=== PATIENT | female | born 1965 | race Caucasian/White ===

== ENCOUNTER 2017-11-08 07:34 | Day surgery (SDC) | payer BC ==
[2017-11-06 11:26] VITALS: BMI 27.4
[2017-11-08] MEDS ORDERED: fentaNYL CITRATE 250 MCG/5 ML VIAL ONE (10:00)
[2017-11-08] MEDS ORDERED: PROPOFOL 20 ML ONE (10:00)
[2017-11-08] MEDS ORDERED: MIDAZOLAM HCL 2 MG/2 ML SINGLE DOSE VIAL ONE (10:01)
[2017-11-08] MEDS ORDERED: LIDOCAINE HCL/PF 2% SDV 5ML VIAL ONE (10:01)
[2017-11-08] MEDS ORDERED: LIDOCAINE HCL 2% JELLY (5 ML/TUBE) ONE (10:02)
[2017-11-08] MEDS ORDERED: ONDANSETRON 4 MG/2 ML VIAL ONE ×2 (10:02→11:53)
[2017-11-08] MEDS ORDERED: DEXAMETHASONE SOD PHOSPHATE 4 MG/1 ML VIAL ONE (10:02)
[2017-11-08] MEDS ORDERED: KETOROLAC TROMETHAMINE 30 MG/1 ML VIAL ONE (10:02)
[2017-11-08] MEDS ORDERED: ceFAZolin SODIUM 1 GM VIAL ONE (10:02)
[2017-11-08] MEDS ORDERED: ceFAZolin SODIUM 1 GM VIAL IVPB ONE (10:37)
[2017-11-08] MEDS ORDERED: methylPREDNISolone ACET (DEPO) 40 MG/1 ML VIAL NR ONE (11:21)
[2017-11-08] MEDS ORDERED: BUPIVACAINE HCL/PF 0.25% (2.5MG/ML) 10 ML VIAL IJ ONE (11:22)
--- NOTE | 2017-11-08 11:41 | OP ---
Operative Note - Note: Operative Date: 11/08/17 Pre-Operative Diagnosis: 1. Right knee medial meniscus tear. 2. Right knee DJD Operation: 1. SARK. 2. PMM. 3. Chondroplasty Findings: 1. Right knee partial medial meniscus tear 2. Unstable (grade 4) cartilage flap/chondromalacia medial femoral condyle 3. 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
[2017-11-08] MEDS ORDERED: ONDANSETRON 4 MG/2 ML VIAL IVPUSH ONE (11:52)
[2017-11-08 13:20] VITALS: PULSE 72; TEMP 98
[2017-11-08 13:23] VITALS: BP 122/60
[2017-11-08] MEDS ORDERED: ONDANSETRON 4 MG/2 ML VIAL IVPUSH PRN (14:55)
[2017-11-08] MEDS ORDERED: oxyCODONE HCL 5 MG TABLET PO PRN ×2 (14:55)
[2017-11-08] MEDS ORDERED: LACTATED RINGERS SOLUTION 1,000 ML IV SCH (15:00)
[2017-11-08] MEDS ORDERED: PARoxetine HCL 20 MG TABLET (FP) PO SCH (22:00)
[2017-11-09] MEDS ORDERED: amLODIPine BESYLATE 10 MG TABLET (FP) PO SCH (10:00)
--- NOTE | 2017-11-09 13:51 | OP ---
DATE OF OPERATION: 11/08/2017 SURGEON: Gallo Briceno MD PIPE SMOKER MACHINE OPERATOR: Danny Briceno MD PREOPERATIVE DIAGNOSIS: Right medial meniscal tear of knee with osteoarthritis. POSTOPERATIVE DIAGNOSIS: Tricompartmental osteoarthritis of right knee and medial meniscal tear. OPERATION PERFORMED: 1. Right knee arthroscopy. 2. Arthroscopic shaving chondroplasty of right medial femoral condyle. 3. Right partial posterior horn medial meniscectomy. ANESTHESIA: General. ANTIBIOTICS GIVEN: Kefzol 2 g. DESCRIPTION OF PROCEDURE: The patient was correctly identified and brought to the operating room. His right lower extremity was prepped free and draped in the routine manner, with Betadine scrub solution, wiped off with alcohol, and DuraPrep applied. A knee bolster was applied. A bloodless field was utilized. Via a standard anterolateral portal and anteromedial portal, the arthroscopic instrumentation was introduced into the knee. 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 The medial femoral condyle appeared to have significant degenerative Outerbridge level 3 and 4 changes on the entire medial femoral condyle, worse posteriorly, where a large flap tear was noted, giving a diagnosis of Outerbridge level 4 lesion. The lateral patellar facet revealed 3 Outerbridge changes, the trochlear groove level 2 changes. Thus, most of the chondral damage was on the lateral patella, the trochlea groove, as well as the medial femoral condyle. The lateral joint surface itself, the hyaline cartilage was normal. The only concern was the start of a rim osteophyte on the tibial side and femoral side. This was readily noted more on the femoral side, pointing towards tricompartmental disease. A shaving chondroplasty was performed using a Highcon shaver, clearing the flap tear off the medial femoral condyle and trimming out the peripheral edge and tear of the posterior horn which was flapping into the joint. A very conservative shaving of the meniscus was performed to enable its structural integrity to be maintained. The ACL ligament appeared normal. The lateral compartment was pristine in appearance except for the osteophyte, as noted. The popliteal hiatus revealed no loose bodies. The knee was thoroughly lavaged. The portals were closed with 3-0 nylon. The joint was instilled with Marcaine and steroid. The patient was extricated from the operating room with no complications. MD NEIL Hendricks/[id number]
--- NOTE | 2017-11-13 15:43 | PATH ---
Surgical Pathology Report Patient Name: GEOVANNA MAKI Med. Rec. #: [id number] /Age/Gender: 1965 (Age: 52) / F Account: [id number] Location: [facility] AMBULATORY Taken: 11/08/2017 Received: 11/08/2017 Reported: 11/13/2017 Physicians: Danny Briceno M.D. Specimen(s) Received RIGHT KNEE SHAVINGS Clinical History Medial meniscus tear Final Diagnosis KNEE, RIGHT, ARTHROSCOPIC SHAVINGS: FIBROSYNOVIAL TISSUE AND CARTILAGE. Electronically Signed Sue Suárez M.D. Gross Description Received in formalin, labeled "right knee shavings," is a 2.5 x 1.5 x 1.2 cm. aggregate of hwang-yellow soft tissue fragments. The formalin is filtered and the specimen is entirely submitted in one cassette. 11/12/201711/12/2017
== END 2017-11-08 13:00 | disposition home or self-care (01) ==
LOC: FASU 07:34
PROVIDERS: ATTEND Orthopaedic Surgery Adult Reconstructive Orthopaedic Surgery
PROC: 0SBC4ZZ Excision of Right Knee Joint, Percutaneous Endoscopic Approach (ICD-10-PCS; principal; 2017-11-08 09:00)
DX: M23.221 Derangement of posterior horn of medial meniscus due to old tear or injury, right knee (principal); M17.11 Unilateral primary osteoarthritis, right knee
CPT/HCPCS: 88304-TC; 94760

== ENCOUNTER 2018-02-26 07:25 | Inpatient (IN) | payer BC, OTHER ==
[2018-02-26 08:06] VITALS: BMI 27.2
[2018-02-26] MEDS ORDERED: MIDAZOLAM HCL 2 MG/2 ML SINGLE DOSE VIAL ONE ×4 (08:34→13:23)
[2018-02-26] MEDS ORDERED: ONDANSETRON 4 MG/2 ML VIAL ONE ×4 (08:43→15:53)
[2018-02-26] MEDS ORDERED: KETOROLAC TROMETHAMINE 30 MG/1 ML VIAL ONE ×2 (08:43→11:10)
[2018-02-26] MEDS ORDERED: DEXAMETHASONE SOD PHOSPHATE 4 MG/1 ML VIAL ONE ×2 (08:43→11:04)
[2018-02-26] MEDS ORDERED: VANCOMYCIN 1,000 MG in DEXTROSE 5%-WATER - 250 ML IVPB ONE ×2 (09:47→22:00)
[2018-02-26] MEDS ORDERED: TRANEXAMIC ACID 1000 MG/10 ML VIAL IVPUSH ONE (09:47)
[2018-02-26] MEDS ORDERED: CEFAZOLIN 2 GM in DEXTROSE 5%-WATER - 50 ML IVPB ONE (09:47)
[2018-02-26] MEDS ORDERED: ONDANSETRON 4 MG/2 ML VIAL IVPUSH PRN ×2 (09:53→15:12)
[2018-02-26] MEDS ORDERED: oxyCODONE HCL 5 MG TABLET PO PRN (09:53)
[2018-02-26] MEDS ORDERED: DEXAMETHASONE SOD PHOSPHATE/PF 10 MG/ML SDV ONE (09:57)
[2018-02-26] MEDS ORDERED: BUPIVACAINE LIPOSOME/PF (EXPAREL) 266 MG/20 ML VIAL ONE (09:57)
[2018-02-26] MEDS ORDERED: BUPIVACAINE HCL/PF (5 MG/ML) 30 ML VIAL IJ ONE (09:58)
[2018-02-26] MEDS ORDERED: LOSARTAN POTASSIUM 50 MG TABLET (FP) PO SCH (10:00)
[2018-02-26] MEDS ORDERED: LACTATED RINGERS SOLUTION 1,000 ML IV SCH ×2 (10:00→15:15)
[2018-02-26] MEDS ORDERED: PROPOFOL 20 ML ONE ×8 (10:42→14:38)
[2018-02-26] MEDS ORDERED: VANCOMYCIN 1,000 MG VIAL (RESTRICTED TO ID ONLY) ONE (10:43)
[2018-02-26] MEDS ORDERED: TRANEXAMIC ACID 1000 MG/10 ML VIAL ONE (10:43)
[2018-02-26] MEDS ORDERED: LIDOCAINE HCL/PF 2% SDV 5ML VIAL ONE (10:43)
[2018-02-26] MEDS ORDERED: ceFAZolin SODIUM 1 GM VIAL ONE ×2 (10:43→13:46)
[2018-02-26] MEDS ORDERED: ePHEDrine SULFATE 50 MG/1 ML AMPULE ONE ×2 (12:23→14:50)
[2018-02-26] MEDS ORDERED: SODIUM CHLORIDE 0.9% P/F 10 ML VIAL IJ ONE (13:46)
[2018-02-26] MEDS ORDERED: MAG HYDROX/AL HYDROX/SIMETH 30 ML UNIT-DOSE CUP PO PRN (15:12)
--- NOTE | 2018-02-26 15:12 | SURG ---
Surgery Salesperson Hearing Aids Note Salesperson Hearing Aids: Lefty Street PA-C Date of Service: 02/26/18 Diagnosis: Right knee osteoarthritis Procedure: VALERY right total knee replacement I was present for the entirety of the operative procedure. For further detail, please refer to operative report. Visit type - Case Type Case Type: Scheduled Admission - New patient This patient is new to me today: Yes Date on this admission: 02/26/18
[2018-02-26] MEDS ORDERED: BENZOIN/ALOE VERA/STORAX/TOLU 58 ML BOTTLE ONE (15:19)
--- NOTE | 2018-02-26 15:57 | OP ---
Operative Note - Note: Operative Date: 02/26/18 Pre-Operative Diagnosis: Right knee DJD Operation: Right total knee replacement Findings: Grade 4 chondromalacia medial femoral condyle, trochlear sulcus, & medial tibial plateau Implants: [employer]abjit Triathlon, all components cemented. Femur - 3. Tibia - 4. Poly - 9mm, PS. Patella - 27mm, symmetric Post-Operative Diagnosis: Same as Pre-op Surgeon: Danny Briceno Haulpak Driver: Lefty Street Anesthesiologist/THERAPIST RESPIRATORY: Yeyo Cook Anesthesia: Spinal (Adductor canal block) Specimens Removed: Bone, soft tissue Estimated Blood Loss (mls): 100 Fluid Volume Replaced (mls): 1,800 Operative Report Dictated: Yes
[2018-02-26] MEDS ORDERED: ACETAMINOPHEN INJECTION 100 ML IVPB ONE (16:01)
--- NOTE | 2018-02-26 16:01 | PN ---
Progress Note (short form) - Note Progress Note: 52F s/p RIGHT total knee replacement POD #0. -Pain control: per anaesthesia team. -DVT PPx: - Mechanical: ASA EC 81mg PO BID x 6 weeks. - Mechanical: PABLO's, SCD's. -Incentive spirometry. -PT/OT/Rehab, OOB. -WBAT RLE. -Lexi-op antibiotics: Ancef, Vancomycin. -f/u TOV. -f/u AM labs tomorrow. -Diet as tolerated. -Care per medical hospitalist team. -Discharge planning. -Will follow. Danny Briceno MD (Orthopaedic Surgery).
[2018-02-26] MEDS ORDERED: ACETAMINOPHEN 1000 MG/100 ML VIAL (NON FORMULARY) IVPB ONE (16:08)
[2018-02-26] MEDS: oxyCODONE HCL 10 MG SUSTAINED ACTING TABLET PO SCH ×2 (17:17→22:08)
[2018-02-26] MEDS: ACETAMINOPHEN 1000 MG/100 ML VIAL (NON FORMULARY) IVPB SCH (17:18)
[2018-02-26] MEDS: ACETAMINOPHEN 325 MG TABLET (FP) PO SCH (17:41)
[2018-02-26] MEDS: oxyCODONE HCL 5 MG TABLET PO PRN ×2 (17:58→22:48)
[2018-02-26] MEDS ORDERED: CEFAZOLIN 1 GM/D5W 1 GM/50 ML BAG IVPB SCH (18:00)
[2018-02-26] MEDS ORDERED: ASCORBIC ACID 500 MG TABLET (FP) PO SCH (22:00)
[2018-02-26] MEDS: SENNOSIDES/DOCUSATE COMBO (SENNA PLUS) TABLET (UD) PO SCH (22:07)
[2018-02-26] MEDS: PARoxetine HCL 20 MG TABLET (FP) PO SCH ×2 (22:07→22:13)
[2018-02-26] MEDS: CEFAZOLIN 1 GM/D5W 1 GM/50 ML BAG IVPB SCH (22:07)
[2018-02-26] MEDS: ASPIRIN COATED 81 MG TABLET.EC PO SCH (22:07)
[2018-02-27] MEDS: ACETAMINOPHEN 1000 MG/100 ML VIAL (NON FORMULARY) IVPB SCH ×2 (01:08→08:28)
[2018-02-27] MEDS: oxyCODONE HCL 5 MG TABLET PO PRN ×2 (03:07→06:26)
[2018-02-27] MEDS: CEFAZOLIN 1 GM/D5W 1 GM/50 ML BAG IVPB SCH (06:19)
[2018-02-27 09:51] LABS: ANION GAP 6 (8-16); BLOOD UREA NITROGEN 12 mg/dl (7-18); CALCIUM 8.9 mg/dl (8.4-10.2); CHLORIDE 100 mmol/L (98-107); CO2 26 mmol/L (22-28); GLUCOSE,RANDOM 178 mg/dl (74-106); POTASSIUM 4.2 mmol/L (3.5-5.1); SODIUM 132 mmol/L (136-145)
[2018-02-27] MEDS: ASPIRIN COATED 81 MG TABLET.EC PO SCH (09:51)
[2018-02-27] MEDS: oxyCODONE HCL 10 MG SUSTAINED ACTING TABLET PO SCH (09:52)
[2018-02-27] MEDS: SENNOSIDES/DOCUSATE COMBO (SENNA PLUS) TABLET (UD) PO SCH (09:52)
[2018-02-27] MEDS ORDERED: PANTOPRAZOLE 40 MG TABLET (FP) PO SCH (10:00)
[2018-02-27] MEDS ORDERED: amLODIPine BESYLATE 10 MG TABLET (FP) PO SCH (10:00)
[2018-02-27] MEDS ORDERED: LOSARTAN POTASSIUM 50 MG TABLET (FP) PO SCH (10:00)
[2018-02-27 10:15] LABS: HEMATOCRIT 35.5 % (32.4-45.2); HEMOGLOBIN 11.3 GM/dl (10.7-15.3); MCH 26.5 pg (25.7-33.7); MCHC 31.8 g/dl (32.0-36.0); MEAN CELL VOLUME 83.3 fl (80-96); PLATELET COUNT 301 K/MM3 (134-434); RBC 4.26 M/mm3 (3.60-5.2); RDW 12.6 % (11.6-15.6); WHITE BLOOD COUNT 15.6 K/mm3 (4.0-10.8)
[2018-02-27 10:32] LABS: CREATININE < 0.8 mg/dl (0.6-1.3)
--- NOTE | 2018-02-27 11:20 | OP ---
DATE OF OPERATION: 02/26/2018 SURGEON: Danny Briceno MD LASERIST: Lefty Street MD PREOPERATIVE DIAGNOSIS: Osteoarthritis, right knee. POSTOPERATIVE DIAGNOSIS: Osteoarthritis, right knee. SURGICAL PROCEDURE: Right MAKOplasty total knee replacement arthroplasty by a subvastus approach. ANESTHESIA: Spinal, sedation, adductor canal block. POSITION: Supine INCISION: Midline ESTIMATED BLOOD LOSS: 100 mL. INTRAVENOUS FLUID: Crystalloid, 1.8 L. SPECIMENS: None. DRAINS: None. COMPLICATIONS: None. URINE OUTPUT: None. BACTERIOLOGY: None. TRANSFUSIONS: None. CLOSURE: No. 1 and 2-0 Vicryl, 3-0 Biosyn absorbable sutures. TOURNIQUET PRESSURE: 300 mmHg. TOURNIQUET TIME: 180 minutes. INDICATIONS: The patient is a 52-year-old female who was indicated for a right total knee replacement in order to facility improved motion and mobilization and to prevent the complications associated with a sedentary lifestyle. The patient specifically requested a MAKOplasty robotic total knee replacement done by a muscle-sparing subvastus knee replacement. This all being feasible, I decided to perform this exact procedure. The patient was identified in the holding area by her armband. A long discussion was held with the patient in the presence of her regarding the risks, benefits, and alternatives of the above-named procedure. The risks include, but are not limited to: Pain, bleeding, infection, damage to surrounding structures (including nerves, blood vessels, skin, ligaments, tendons, and bone), wound complications, failure of hardware/implants/reduction, need for further surgery, blood clots, myocardial infarction, cerebrovascular injury, pulmonary embolism, anesthesia complications, compartment syndrome, limb loss, limp, loss of function, and . Benefits were as mentioned above. Alternatives include no surgery. All questions were answered. The patient and her partner understood and agreed to the procedure. Informed consent was obtained, witnessed, and verified. The patients correct operative limb - that is the right lower extremity - was marked. The patient was taken to the operating room after being seen by the anesthesia and nursing staff. DESCRIPTION OF PROCEDURE: The patient was brought into the operating room and transferred to the OR table, where she was secured with a safety strap. Consent and the operative site were again verified with the patient and nursing and anesthesia staff. Patient received a right lower extremity adductor canal nerve block in the preoperative holding area. Upon arrival into the operating room, she received 1 g of intravenous vancomycin as well as 2 g of intravenous Ancef. A time-out was then done led by , the attending surgeon. A preoperative orthopedic examination revealed a marked varus deformity of the right knee with an approximately 5-degree flexion contracture of the knee. The patient was positioned with all bony prominences well padded, and a tourniquet was placed proximally on the right thigh and set to 300 mmHg. The operative site was then prepped and draped in standard sterile fashion. A time-out was again done. The foot and lower leg were secured in a leg-camara, which was part of the sliding rail system that secured the lower leg throughout the procedure. A time-out was again done. The limb was then exsanguinated using an Esmarch. The tourniquet was inflated, and the case began. A midline longitudinal incision was made into the right knee followed by a subvastus exposure. The patella was everted and a free-hand cut of the posterior surface of the patella was made so as to facilitate patellar resurfacing. With the intention of placing the smallest possible symmetric button, a drill guide was utilized to ream 3 drill holes into the cut surface of the patella so as to facility resurfacing with a prosthetic implant. At this point in time, the femoral pins were drilled into the distal diaphysis of the femur almost in the coronal plane of the knee exiting medially. The femoral array was then assembled. Next, the tibial pins for the MAKOplasty array were inserted 4 fingerbreadths distal to the tibial tubercle over the anteromedial surface of the tibia. Two short longitudinal skin incisions were made to facilitate the approach to the surface of the tibia. The tibial array was then assembled. Checkpoint stubs were then inserted into the proximal tibial bone bed as well as the distal femoral bone bed adjacent to the exposed medial femoral condyle. Next, all checkpoints were obtained in accord with the MAKOplasty software and verified to be within acceptable parameters so as to perform the MAKOplasty procedure with planned accuracy. At this time, the infrapatellar fat pad was excised. A peripatellar neurectomy was performed using electrocautery. The ACL and PCL were then transected using electrocautery. Soft tissues were then retracted to provide full exposure of the knee using retractor system. The MAKOplasty robotic arm was used to perform all bone cuts of the distal femur as well as the proximal tibia. Trial components were then inserted, and due to tight flexion and extension gaps, the decision was made to cut 2 more millimeters off the proximal tibia. Trial components were then inserted, and excellent coronal, sagittal, and rotational balance was demonstrated with good fit of the implants. Outstanding range of motion was demonstrated with the knee being flexed from 0 to 130 degrees of knee flexion. Excellent varus/valgus stability was achieved in full extension as well as at 90 degrees of flexion with the trial components in place. At this point in time, 2 lug holes were drilled into the distal femoral bone bed via the trial implant so as to facilitate final implantation. Next, a box-cut jig was assembled and a chisel and oscillating saw were used to produce a box notch cut into the distal femur. The remaining stump of ACL and PCL were then excised using electrocautery. At this point in time, the proximal tibial bone bed was then prepped for final implantation. Due to the excessive sclerotic bone over the medial tibial plateau, numerous drill holes were made into the bone bed to allow excellent potential for interdigitation of the cement mantel so as to expose maximum fixation of the implant. Next the bone was copiously irrigated so as to displace all blood and fat from the interstices of the cancellous bone. This was on all bony surfaces. Cement was then impacted using high pressurized gun as well as finger impaction into the interstices of bone bed and all cut surfaces. The following implants were then cemented into place: [employer] Triathlon knee tibia size 4, femur size 3 (posterior stabilized), patella 27 mm symmetric, and 9-mm polyethylene insert (posterior stabilized). The knee was then placed in full extension so as to allow curing of the cement with the knee in full extension. Once the cement was satisfactorily hard, all excess cement was debrided using a 0.25-inch curved osteotome and mallet. It should be noted that the 9-mm polyethylene insert was a trial insert that had been placed. The knee was thoroughly irrigated once again after removal of the trial polyethylene insert. The tourniquet was then released at a final time of 180 minutes, and hemostasis was achieved using electrocautery. Next, an 11-mm polyethylene insert was implanted, and this was a PS insert. Next, the knee was taken through a full range of motion and alignment and stability in the coronal, sagittal, and rotation planes in full extension and full flexion were satisfactory. The leg was straightened, and passive range of motion was demonstrated from 0 to 130 degrees of knee flexion. Full varus and valgus stability was demonstrated in both full extension and at 90 degrees of flexion. This was with varus and valgus stress and with the use of a Schneider elevator in the medial and lateral joint spaces. Once again, the wounds were copiously irrigated. With hemostasis assured, the decision was made not to place the drain. The wounds were closed primarily using No. 1 and 2-0 Vicryl sutures, and the skin was eventually closed using 3-0 Biosyn in intracuticular running fashion. The checkpoint stubs and femoral as well as tibial pins all removed prior to closure and prior to the final round of irrigation. The tibial sites were closed using 3-0 Vicryl suture in buried fashion. Next, the skin surface was cleaned using water-soaked lap pads, and then, dried using dry lap pads. Benzoin and Steri-Strips as well as a JumpStart dressing were applied over the wounds, and Webril as well as Milan wraps were placed on the foot all the way up to the thigh with a compressive sterile dressing. The sponge and needle counts were correct at the end of the case, and I, the attending surgeon, was present and scrubbed throughout the case. The patient was then transferred to the hospital bed and then to the recovery room in stable condition having tolerated this procedure well. MD NEIL Alanis/[id number]
--- NOTE | 2018-02-27 12:55 | DS ---
Physical Exam: SUBJECTIVE: Patient seen and examined, ambulatory at bedside, with the assistance of a walker, patient denies any chest pain, shortness of breath, or paresthesia to the right lower extremity OBJECTIVE: patient is a 52 y/o female with a past medical history of hypertension and DJD. Patient was admitted to the medical surgical unit after an elective right kneee replacement, Dr Briceno. Vital Signs Temperature 98.1 F 02/27/18 06:00 Pulse Rate 83 02/27/18 06:00 Respiratory Rate 18 02/27/18 06:00 Blood Pressure 110/57 02/27/18 06:00 O2 Sat by Pulse Oximetry (%) 93 L 02/27/18 06:00 PHYSICAL EXAM GENERAL: The patient is awake, alert, and fully oriented, in no acute distress. HEAD: Normal with no signs of trauma. EYES: PERRL, extraocular movements intact, sclera anicteric, conjunctiva clear. ENT: Ears normal, nares patent, oropharynx clear without exudates, moist mucous membranes. NECK: Trachea midline, full range of motion, supple. LUNGS: Breath sounds equal, clear to auscultation bilaterally, no wheezes, no crackles, no accessory muscle use. HEART: Regular rate and rhythm, S1, S2 without murmur, rub or gallop. ABDOMEN: Soft, nontender, nondistended, normoactive bowel sounds, no guarding, no rebound, no hepatosplenomegaly, no masses. EXTREMITIES: 2+ pulses, warm, well-perfused, no edema. RIGHT LOWER EXTREMITY: dressing CDI, less than 3 second capillary. + 3 pedal pulse NEUROLOGICAL: Cranial nerves II through XII grossly intact. Normal speech, gait not observed. PSYCH: Normal mood, normal affect. SKIN: Warm, dry, normal turgor, no rashes or lesions noted. LABS CBC,CMP WBC 15.6 K/mm3 (4.0-10.8) H 02/27/18 09:10 RBC 4.26 M/mm3 (3.60-5.2) 02/27/18 09:10 Hgb 11.3 GM/dl (10.7-15.3) 02/27/18 09:10 Hct 35.5 % (32.4-45.2) 02/27/18 09:10 MCV 83.3 fl (80-96) 02/27/18 09:10 MCH 26.5 pg (25.7-33.7) 02/27/18 09:10 MCHC 31.8 g/dl (32.0-36.0) L 02/27/18 09:10 RDW 12.6 % (11.6-15.6) 02/27/18 09:10 Plt Count 301 K/MM3 (134-434) 02/27/18 09:10 MPV 8.0 fl (7.5-11.1) 02/27/18 09:10 Sodium 132 mmol/L (136-145) L 02/27/18 09:10 Potassium 4.2 mmol/L (3.5-5.1) 02/27/18 09:10 Chloride 100 mmol/L (98-107) 02/27/18 09:10 Carbon Dioxide 26 mmol/L (22-28) 02/27/18 09:10 Anion Gap 6 (8-16) L 02/27/18 09:10 BUN 12 mg/dl (7-18) 02/27/18 09:10 Creatinine < 0.8 mg/dl (0.6-1.3) 02/27/18 09:10 POC Glucometer 136 UNITS (80-120) 02/26/18 16:27 Random Glucose 178 mg/dl (74-106) H 02/27/18 09:10 Calcium 8.9 mg/dl (8.4-10.2) 02/27/18 09:10 HOSPITAL COURSE: The patient was admitted to the Med-Surg Unit after an elective repair of their (problem). Now, s/p ( procedure ). The day of surgery, the patient ambulated the hallways with assistance. Narcotic and non-narcotic pain management control was achieved with an oral and IV approach. POD #1, the surgical drain was removed fully intact and without incident. An xray was obtained and confirmed hardware placement at (level of ), no fractures or dislocations. Lexi-operative IV ABX were administered. DVT prophylaxis was achieved with SCDs and early ambulation. The patient ambulated with Physical Therapy and no services were recommended upon discharge. Narcotic scripts and or muscle relaxants were checked with [place] [employer] prior to escibe. The discharge instructions and an oral pain management plan were reviewed with the patient. All questions answered. Above plan discussed with Dr. Wallis and agreed Date of Admission:02/26/18 Date of Discharge: 02/27/18 . Minutes to complete discharge: 45
--- NOTE | 2018-02-27 14:37 | PN ---
Progress Note (short form) - Note Progress Note: 52F POD1 s/p R TKR under spinal anesthetic with peripheral nerve blocks for post operative pain relief. Pt states that pain is well controlled and reports no anesthetic complications. AVSS. Sensory and motor function intact in bilateral lower extremities. Continue current regimen.
[2018-02-27 14:56] VITALS: BP 129/65; PULSE 90; TEMP 98
--- NOTE | 2018-03-03 13:52 | PATH ---
Surgical Pathology Report Patient Name: GEOVANNA MAKI Med. Rec. #: [id number] /Age/Gender: 1965 (Age: 52) / F Account: [id number] Location: [facility] MED-SURG Taken: 02/26/2018 Received: 02/26/2018 Reported: 03/03/2018 Physicians: Danny Briceno M.D. Specimen(s) Received BONE RIGHT KNEE Clinical History Right knee osteoarthritis Final Diagnosis BONE AND SOFT TISSUE, RIGHT KNEE, REPLACEMENT: DEGENERATIVE JOINT DISEASE. Electronically Signed Skip Sevilla M.D. Gross Description Received in formalin labeled "bones right knee" is a 11 x 11 x 3 cm aggregate of multiple portions of bone and soft tissue. The tibial plateau measures 7 x 4 x 1.5 cm. There are focal areas of eburnation identified. The articular surface is hwang-yellow and diffusely granular. The underlying trabecular bone is yellow and hard. Steak Sauce Maker sections submitted in one cassette, following decalcification. YU/02/27/2018 april/02/27/2018
== END 2018-02-27 15:18 | disposition home health service (06) | DRG 470 ==
LOC: FM/S 07:25
PROVIDERS: ADMIT Orthopaedic Surgery Adult Reconstructive Orthopaedic Surgery; ATTEND Orthopaedic Surgery Adult Reconstructive Orthopaedic Surgery
PROC: 0SRC0J9 Replacement of Right Knee Joint with Synthetic Substitute, Cemented, Open Approach (ICD-10-PCS; principal; 2018-02-26 11:35)
DX: M17.11 Unilateral primary osteoarthritis, right knee (principal)
CPT/HCPCS: 36415; 73560-TC-RT-FY; 80048; 82962; 85027; 88304-TC; 88311-TC; 94010; 97116-GP; 97162-GP; J0131